=== PATIENT | female | born 1955 | race African-American/Black ===

== ENCOUNTER 2025-01-17 05:34 | Day surgery (SDC) | payer MEDICARE, OTHER ==
[2025-01-16 14:10] VITALS: BMI 30.2
[~2025-01-17 05:34] MED LIST: EPINEPHrine 0.3 MG in Ophthalmic Irrigation Solution 500 ML IRR SCH
[2025-01-17] MEDS ORDERED: Cyclopentolate 1% Opth Drop 2 ML BOT ONE (06:04)
[2025-01-17] MEDS ORDERED: Lidocaine 1% PF 5 ML VIAL ONE ×2 (06:59→07:52)
[2025-01-17] MEDS ORDERED: PROPOFOL 20 ML ONE (06:59)
[2025-01-17] MEDS ORDERED: Maxitrol 0.1% Opth Oint 3.5 GM TUBE ONE (07:52)
[2025-01-17] MEDS ORDERED: Lidocaine 4% PF 5 ML AMP ONE (07:52)
[2025-01-17] MEDS ORDERED: CEFAZOLIN 1 GM VIAL ONE (07:52)
== END 2025-01-17 09:42 | disposition home or self-care (01) ==
LOC: SDC 05:34
PROVIDERS: ATTEND Ophthalmology Retina Specialist
PROC: 08T43ZZ Resection of Right Vitreous, Percutaneous Approach (ICD-10-PCS; principal; 2025-01-17)
PROC: 08NE3ZZ Release Right Retina, Percutaneous Approach (ICD-10-PCS; 2025-01-17)
DX: H35.341 Macular cyst, hole, or pseudohole, right eye (principal); I10 Essential (primary) hypertension; Z98.49 Cataract extraction status, unspecified eye; Z96.1 Presence of intraocular lens
CPT/HCPCS: 67025; 67042; 93005; J0166; J0690; J2250; J2704; J3010; J3301; J3490